=== PATIENT | male | born 1980 | race Caucasian/White ===

== ENCOUNTER 2017-02-28 20:47 | Inpatient (IN) | payer OTHER ==
[~2017-02-28] VITALS: Ht 182.9 cm; Wt 104.0 kg
[2017-02-28 20:45] VITALS: O2SAT 100
[~2017-02-28 20:47] MED LIST: ENOX40P SC; LORTA10 PO; MORP30SU PO
[2017-02-28] MEDS ORDERED: ceFAZolin 2 GM PREMIX 50 ML ONE (20:53)
[2017-02-28] MEDS ORDERED: ONDANSETRON HCL 4 MG/2 ML VIAL ONE (20:53)
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
[2017-02-28 21:18] LABS: I-STAT SODIUM 145 MMOL/L (138-146)
[2017-02-28 21:19] LABS: I-STAT POTASSIUM 4.6 MMOL/L (3.5-4.9)
[2017-02-28] MEDS ORDERED: IOHEXOL 350 MG/ML 10 ML VIAL (for RAD DIAG) IV ONE (21:19)
[2017-02-28 21:22] LABS: AUTOMATED NEUTROPHIL # 4.8 TH/MM3 (1.8-7.7); BASOPHIL # 0.1 TH/MM3 (0-0.2); EOSINOPHIL # 0.3 TH/MM3 (0-0.4); EOSINOPHIL % 2.9 % (0.0-4.0); HEMATOCRIT 40.9 % (39.0-51.0); HEMO FLAGS DIFF FINAL; LYMPH % 38.9 % (9.0-44.0); LYMPHOCYTE # 3.7 TH/MM3 (1.0-4.8); MEAN CELL VOLUME 89.3 FL (80.0-100.0); MEAN CORPUSCULAR HGB CONC 34.7 % (32.0-36.0); MONO % 6.8 % (0.0-8.0); NEUT % 50.4 % (16.0-70.0); PLATELET COUNT 236 TH/MM3 (150-450); RED BLOOD COUNT 4.58 MIL/MM3 (4.50-5.90); RED CELL DISTRIBUTION WIDTH 13.2 % (11.6-17.2); WHITE BLOOD COUNT 9.5 TH/MM3 (4.0-11.0)
[2017-02-28] MEDS ORDERED: MIDAZOLAM HCL 5 MG/ML VIAL (1 ML) ONE (21:22)
[2017-02-28] MEDS ORDERED: LIDOCAINE 1%/EPINEPHrine 1:100,000 SOLN 20 ML VIAL ONE ×2 (21:23→21:27)
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
[2017-02-28] MEDS ORDERED: LIDOCAINE 1%/EPINEPHrine 1:100,000 SOLN 20 ML VIAL INFIL ONE ×2 (21:30)
[2017-02-28] MEDS ORDERED: DIPHTH/TETANUS/ACEL PERTUSSIS (BOOSTER) 0.5 ML VIAL/PFS IM ONE (21:39)
[2017-02-28] MEDS ORDERED: ceFAZolin 2 GM PREMIX 50 ML IV STA (21:39)
[2017-02-28 21:41] LABS: APTT (PATIENT) 26.4 SEC (24.3-30.1); INTERNATIONAL NORMALIZED RATIO 1.1 RATIO; PROTHROMBIN TIME - PATIENT 11.8 SEC (9.8-11.6)
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
[2017-02-28] MEDS ORDERED: SODIUM CHLOR 0.9% 1000 ML INJ 1,000 ML IV ONE (21:45)
--- NOTE | 2017-02-28 21:46 | PD ---
Physical Exam Time Seen by Provider: 21:25 Data Data Orders Ed Poc Ultrasound (02/28/17 ) Fentanyl Inj (Fentanyl Inj) (02/28/17 20:53) Cefazolin 2 Gm Premix (Ancef 2 Gm Premix (02/28/17 20:53) Ondansetron Inj (Zofran Inj) (02/28/17 20:53) I-Stat Profile (02/28/17 20:54) I-Stat Creatinine (02/28/17 20:54) Complete Blood Count With Diff (02/28/17 20:54) Prothrombin Time / Inr (Pt) (02/28/17 20:54) Act Partial Throm Time (Ptt) (02/28/17 20:54) Type And Screen (02/28/17 20:54) Fibrinogen (02/28/17 20:54) Alcohol (Ethanol) (02/28/17 20:54) Red Blood Cells (Rbc) (02/28/17 20:54) Urinalysis - C+S If Indicated (02/28/17 20:54) Chest, Single Ap (02/28/17 20:54) Pelvis, Ap Only (Routine) (02/28/17 20:54) Ct Brain W/O Iv Contrast(Rout) (02/28/17 20:54) Ct Cerv Spine W/O Contrast (02/28/17 20:54) Ct Abd/Pel W Iv Contrast(Rout) (02/28/17 20:54) Ct Thorax/ Chest W Iv Contrast (02/28/17 20:54) Iv Access Insert/Monitor (02/28/17 20:54) Ecg Monitoring (02/28/17 20:54) Oximetry (02/28/17 20:54) Oxygen Administration (02/28/17 20:54) Drug Screen, Random Urine (02/28/17 20:54) Tibia/Fibula (Ap/Lat) (02/28/17 ) Iohexol 350 Inj (Omnipaque 350 Inj) (02/28/17 21:19) Lidocai-Epi 1%-1:100,000 Inj (Xylocaine- (02/28/17 21:30) Lidocai-Epi 1%-1:100,000 Inj (Xylocaine- (02/28/17 21:30) Midazolam Inj (Versed Inj) (02/28/17 21:22) Lidocai-Epi 1%-1:100,000 Inj (Xylocaine- (02/28/17 21:23) Lidocai-Epi 1%-1:100,000 Inj (Xylocaine- (02/28/17 21:27) Sodium Chlor 0.9% 1000 Ml Inj (Ns 1000 M (02/28/17 21:45) Cefazolin 2 Gm Premix (Ancef 2 Gm Premix (02/28/17 21:39) Wlyi-Rhp-Mczjxx (Booster) Inj (Boostrix (02/28/17 21:39) Labs Laboratory Tests Test 02/28/17 20:55 White Blood Count 9.5 TH/MM3 Red Blood Count 4.58 MIL/MM3 Hemoglobin 14.2 GM/DL Bedside Hemoglobin 13.9 G/DL Hematocrit 40.9 % Bedside Hematocrit 41.0 % Mean Corpuscular Volume 89.3 FL Mean Corpuscular Hemoglobin 31.0 PG Mean Corpuscular Hemoglobin 34.7 % Concent Red Cell Distribution Width 13.2 % Platelet Count 236 TH/MM3 Mean Platelet Volume 8.6 FL Neutrophils (%) (Auto) 50.4 % Lymphocytes (%) (Auto) 38.9 % Monocytes (%) (Auto) 6.8 % Eosinophils (%) (Auto) 2.9 % Basophils (%) (Auto) 1.0 % Neutrophils # (Auto) 4.8 TH/MM3 Lymphocytes # (Auto) 3.7 TH/MM3 Monocytes # (Auto) 0.6 TH/MM3 Eosinophils # (Auto) 0.3 TH/MM3 Basophils # (Auto) 0.1 TH/MM3 CBC Comment DIFF FINAL Differential Comment Prothrombin Time 11.8 SEC Prothromb Time International 1.1 RATIO Ratio Activated Partial 26.4 SEC Thromboplast Time Fibrinogen 223 mg/dL Bedside Sodium 145 MMOL/L Bedside Potassium 4.6 MMOL/L Bedside Chloride 104 MMOL/L Bedside Blood Urea Nitrogen 12 MG/DL Bedside Creatinine 1.0 MG/DL Bedside Glucose 89 MG/DL Blood Type O POSITIVE [facility] Medical Record Reviewed: Yes Supervised Visit with GRUPO: No Narrative Course This patient presents as a trauma alert. I was asked to repair this patient's left parietal scalp laceration. He verbally consented for laceration repair. Please see accompanying procedural note. Procedures Procedure Narrative LACERATION LOCATION: Left parietal scalp LENGTH: Approximate 4-5 cm in length, stellate laceration NUMBER OF STITCHES/ARY: 16 REPAIR: The area of the laceration was prepped with Betadine and sterilely draped. The laceration was infiltrated with 1% lidocaine with epinephrine. The wound was copiously irrigated and explored without evidence of foreign body , tendon injury or neurovascular injury. The wound was closed using ary. This was a single layer repair. A sterile dressing was applied. The patient was advised to keep the dressing clean and dry. Patient tolerated the procedure well. George Dawn Feb 28, 2017 21:46
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
[2017-02-28 22:00] VITALS: O2SAT 100
[2017-02-28] MEDS ORDERED: PANTOPRAZOLE SODIUM 40 MG VIAL IVP SCH (22:00)
[2017-02-28] MEDS ORDERED: oxyCODONE/ACETAMINOPHEN 5 MG/325 MG TAB PO PRN (22:00)
[2017-02-28] MEDS ORDERED: MAGNESIUM HYDROXIDE SUSP 30 ML CUP PO PRN (22:00)
[2017-02-28] MEDS ORDERED: ONDANSETRON HCL 4 MG/2 ML VIAL IV PRN (22:00)
[2017-02-28] MEDS ORDERED: SODIUM CHLORIDE 0.9% FLUSH 10 ML FLUSH IV FLUSH PRN (22:00)
[2017-02-28] MEDS ORDERED: ENALAPRILAT 1.25 MG/ML VIAL IV PRN (22:00)
[2017-02-28] MEDS ORDERED: HYDROmorphone HCL PF 1 MG/ML VIAL IVP PRN (22:00)
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
[2017-02-28 22:30] VITALS: BP 125/72; PULSE 96; RESP 16; O2SAT 97
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
[2017-02-28 23:00] VITALS: BP 125/80; PULSE 92; RESP 16; O2SAT 99
[2017-02-28 23:30] VITALS: BP 123/82; PULSE 82; RESP 16; O2SAT 100
[2017-02-28] MEDS ORDERED: ADDE30TA PO (23:44)
[2017-02-28] MEDS ORDERED: XANA2TAB2 PO (23:44)
[2017-02-28] MEDS ORDERED: BUPR8SUB SL (23:44)
[2017-03-01 00:45] VITALS: BP 137/81; PULSE 89; RESP 18; TEMP 98.5; O2SAT 98
[2017-03-01] MEDS: oxyCODONE/ACETAMINOPHEN 5 MG/325 MG TAB PO PRN ×4 (00:58→14:22)
[2017-03-01 04:03] VITALS: BP 130/85; PULSE 86; RESP 18; TEMP 98.9; O2SAT 97
[2017-03-01] MEDS ORDERED: ceFAZolin 2 GM PREMIX 50 ML IV SCH (05:00)
[2017-03-01 06:10] LABS: AUTOMATED NEUTROPHIL # 7.4 TH/MM3 (1.8-7.7); BASOPHIL # 0.1 TH/MM3 (0-0.2); BASOPHIL % 0.4 % (0.0-2.0); EOSINOPHIL # 0.4 TH/MM3 (0-0.4); EOSINOPHIL % 2.8 % (0.0-4.0); HEMATOCRIT 37.4 % (39.0-51.0); HEMO FLAGS DIFF FINAL; LYMPH % 32.2 % (9.0-44.0); LYMPHOCYTE # 4.2 TH/MM3 (1.0-4.8); MEAN CELL VOLUME 88.8 FL (80.0-100.0); MEAN CORPUSCULAR HEMOGLOBIN 30.2 PG (27.0-34.0); MONO % 7.6 % (0.0-8.0); PLATELET COUNT 188 TH/MM3 (150-450); RED BLOOD COUNT 4.21 MIL/MM3 (4.50-5.90); RED CELL DISTRIBUTION WIDTH 13.4 % (11.6-17.2); WHITE BLOOD COUNT 13.1 TH/MM3 (4.0-11.0)
[2017-03-01 06:36] LABS: ANION GAP 8 MEQ/L (5-15); AST (GOT) 8 U/L (15-37); BICARBONATE 27.2 MEQ/L (21.0-32.0); BLOOD UREA NITROGEN 12 MG/DL (7-18); CHLORIDE 108 MEQ/L (98-107); GLOMERULAR FILTRATION RATE 79 ML/MIN (>89); SODIUM (NA) 143 MEQ/L (136-145)
[2017-03-01 06:38] LABS: ALT (GPT) 16 U/L (12-78)
[2017-03-01 06:39] LABS: ALKALINE PHOSPHATASE 48 U/L (45-117); TOTAL BILIRUBIN ADULT 0.3 MG/DL (0.2-1.0)
[2017-03-01 07:03] LABS: BLOOD, URINE NEG (NEG); GLUCOSE,URINE NEG (NEG); KETONE, URINE NEG (NEG); NITRITE,URINE NEG (NEG); URINE COLOR YELLOW (YELLW/STRAW)
[2017-03-01 07:07] LABS: COMMENT (UR) CULT NOT INDICATED; CULTURE IF INDICATED CULT NOT INDICATED
[2017-03-01 07:11] LABS: AMPHETAMINE, URINE POS (NEG); BARBITURATES, URINE NEG (NEG); COCAINE, URINE NEG (NEG)
[2017-03-01 07:17] VITALS: BP 115/75; PULSE 71; RESP 17; TEMP 96.6; O2SAT 98
[2017-03-01] MEDS ORDERED: DOCUSATE SODIUM 100 MG CAP PO SCH (09:00)
[2017-03-01 11:07] VITALS: BP 135/88; PULSE 63; RESP 17; TEMP 95.9; O2SAT 99
[2017-03-01] MEDS ORDERED: MAGN400S PO (13:25)
[2017-03-01] MEDS ORDERED: DOCU1CAP39 PO (13:25)
[2017-03-01] MEDS ORDERED: CRUTMIS35 (13:26)
--- NOTE | 2017-03-01 13:36 | MP ---
cc: MARK ANTHONY YANEZ DATE OF SURGERY 02/28/2017 PREPROCEDURE DIAGNOSIS Wound over the left calf POSTOPERATIVE DIAGNOSIS Wound over the left calf PROCEDURE Closure of wound in multiple layers. ANESTHESIA 1% lidocaine with epinephrine PROCEDURE In the trauma bay, the patient's wound was identified. It was cleaned, irrigated with saline and prepped and draped sterilely. The wound extended to the superficial calf muscle and did not go through and through. The investing fascia surrounding the muscle was approximated with 3-0 Vicryl in a simple interrupted manner. The subcutaneous tissue was then approximated with 3-0 Vicryl in a simple interrupted manner and the skin edges were approximated with ary. A sterile dressing was then placed. The patient tolerated the procedure well. MD IRAJ Ross/BOLIVARL /10:16 PM /1:35 PM
[2017-03-01] MEDS ORDERED: AMOX500C PO (13:45)
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
== END 2017-03-01 16:35 | disposition home or self-care (01) | DRG 605 ==
LOC: NEPI 20:47 → MERGE 22:01 → NEDA 22:01 → EDBD 22:01 → OBSVTOIN 22:01 → N06A 03-01 00:30
PROVIDERS: ADMIT Surgery; ATTEND Surgery
PROC: 0HQ0XZZ Repair Scalp Skin, External Approach (ICD-10-PCS; principal; 2017-02-28)
PROC: 0HQLXZZ Repair Left Lower Leg Skin, External Approach (ICD-10-PCS; 2017-02-28)
DX: S01.01XA Laceration without foreign body of scalp, initial encounter (principal); S06.0X9A Concussion with loss of consciousness of unspecified duration, initial encounter; S81.812A Laceration without foreign body, left lower leg, initial encounter; G89.29 Other chronic pain; M54.9 Dorsalgia, unspecified; M54.2 Cervicalgia; Z72.0 Tobacco use; S40.212A Abrasion of left shoulder, initial encounter; S70.212A Abrasion, left hip, initial encounter; Y93.55 Activity, bike riding; Y92.410 Unspecified street and highway as the place of occurrence of the external cause; Y99.9 Unspecified external cause status; V13.4XXA Pedal cycle driver injured in collision with car, pick-up truck or van in traffic accident, initial encounter
CPT/HCPCS: 12002; 12034; 70450; 71010; 71260; 72125; 72170; 73590; 74177; 80053; 80307; 81001; 82435; 82565; 82947; 84132; 84295; 84520; 85025; 85384; 85610; 85730; 86850; 86900; 86901; 86920; 90471; 94150; 96374; 96375; 99291; C9113; E0113; G0390; J0690; J2250; J2405; J3010; Q9967